=== PATIENT | female | born 1955 | race Caucasian/White ===

== ENCOUNTER 2022-04-05 12:45 | Inpatient (IN) | payer OTHER ==
[~2022-04-05] VITALS: Ht 167.6 cm; Wt 51.0 kg
[2022-04-05] MEDS ORDERED: CEFTRIAXONE 1 G in IV DEXTROSE 5% 50 ML IV ONE (13:00)
[2022-04-05] MEDS ORDERED: IV NORMAL SALINE 1000 ML BAG IV ONE (13:00)
[2022-04-05] MEDS ORDERED: CEFTRIAXONE /D5W 50ML IVPB **ER PYXIS IV ONE (13:02)
[2022-04-05 13:41] LABS: *BILIRUBIN,URIN NEGATIVE (NEGATIVE); *BLOOD, URINE 3+ (NEGATIVE); *CLARITY,URINE CLEAR (CLEAR); *COLOR,URINE YELLOW (YELLOW); *KETONES,URINE NEGATIVE (NEGATIVE); LEUKOCYTE ESTERASE ,URINE 1+ (NEGATIVE); NITRITE, URINE NEGATIVE (NEGATIVE); PH,URINE >=9.0 (5.0-8.0); UGLUCOSE NEGATIVE (NEGATIVE)
[2022-04-05] MEDS ORDERED: ASCO500C18 GT (13:46)
[2022-04-05] MEDS ORDERED: MULT-594 GT (13:46)
[2022-04-05] MEDS ORDERED: RISP2TAB85 GT (13:46)
[2022-04-05] MEDS ORDERED: HYDR-3980 PO (13:46)
[2022-04-05] MEDS ORDERED: RIVA10TA GT (13:46)
[2022-04-05] MEDS ORDERED: DOCU-141 GT (13:46)
[2022-04-05] MEDS ORDERED: ARGI1POW13 GT (13:46)
[2022-04-05] MEDS ORDERED: FERR325T30 GT (13:46)
[2022-04-05 13:48] LABS: CREATININE 0.5 mg/dL (0.6-1.3); POTASSIUM 3.9 mmol/L (3.5-5.1)
[2022-04-05 13:54] LABS: BILIRUBIN,DIRECT 0.1 mg/dL (0.0-0.2); BILIRUBIN,TOTAL 0.2 mg/dL (0.2-1.0)
[2022-04-05] MEDS ORDERED: MORPHINE SULFATE 4 MG/1 ML DISP.SYRIN IV ONE ×2 (14:15→15:00)
[2022-04-05 14:16] LABS: HEMATOCRIT 23.5 % (31.2-41.9); MEAN CORPUSCULAR HEMOGLOBIN 19.7 uug (24.7-32.8); MEAN CORPUSCULAR VOLUME 65.5 fL (75.5-95.3); PLATELET COUNT (AUTO) 724 K/uL (179-408)
[2022-04-05] MEDS ORDERED: MORPHINE SULFATE 4 MG/1 ML DISP.SYRIN ONE ×2 (14:52→15:44)
[2022-04-05 17:22] LABS: BACTERIA,URINE MANY /HPF (NONE SEEN); RBC,URINE 20-50 /HPF (0-3)
[2022-04-05 17:23] LABS: SQUAMOUS EPITHELIAL CELL,UR FEW /HPF (NONE SEEN); TRIPLE PHOSPHATE CRYSTAL,UR FEW /HPF (NONE SEEN); URINE AMORPHOUS PHOSPHATES MANY /HPF
[2022-04-05 19:22] LABS: BAND % (MANUAL) 9 % (0-10); EOSINOPHILS % (MANUAL) 1 % (0-8); LYMPHOCYTES % (MANUAL) 28 % (20-40); METAMYELOCYTES % 2 % (0-1); MONOCYTES % (MANUAL) 4 % (2-10); NEUTROPHILS % (MANUAL) 56 % (42-75)
[2022-04-05 20:00] VITALS: BP 122/44
[2022-04-05 21:45] VITALS: BP 117/63
[2022-04-05] MEDS ORDERED: ZOLPIDEM 5 MG TABLET PO PRN (23:15)
[2022-04-05] MEDS ORDERED: ACETAMINOPHEN 325 MG TABLET PO PRN (23:15)
[2022-04-05] MEDS ORDERED: MAGNESIUM HYDROXIDE 30 ML LIQUID UDC PO PRN (23:15)
[2022-04-05] MEDS ORDERED: ONDANSETRON 4 MG/2 ML VIAL IV PRN (23:15)
[2022-04-05] MEDS ORDERED: REMEDY ESSENTIAL ZINC PASTE 113 GM TP PRN (23:15)
[2022-04-05] MEDS ORDERED: PIPERACILLIN SODIUM/TAZO 3.375 GM VIAL ONE ×2 (23:31)
[2022-04-06] VITALS (8 sets, daily range): BP systolic 102–130; BP diastolic 56–72
[2022-04-06] MEDS ORDERED: VANCOMYCIN IV 1,000 MG in IV DEXTROSE 5% 250 ML IV ONE ×2
[2022-04-06] MEDS: MORPHINE SULFATE 2 MG/1 ML DISP.SYRIN IV PRN ×2 (00:05→08:46)
[2022-04-06] MEDS: IV NS 1000 ML 1,000 ML IV PRN (00:06)
[2022-04-06] MEDS ORDERED: VANCOMYCIN IV 200 ML ONE (00:19)
[2022-04-06] MEDS ORDERED: PIPERACILLIN SODIUM/TAZOBACTAM 3.375 G in IV DEXTROSE 5% 50 ML IV ONE ×2 (00:30→06:30)
[2022-04-06] MEDS ORDERED: MAGNESIUM HYDROXIDE 30 ML LIQUID UDC GT PRN (05:37)
[2022-04-06] MEDS ORDERED: ZOLPIDEM 5 MG TABLET GT PRN (05:38)
[2022-04-06] MEDS ORDERED: ACETAMINOPHEN 650 MG/20.3 ML LIQUID UDC GT PRN (05:45)
[2022-04-06 06:23] LABS: MEAN CORPUSCULAR HEMOGLOBIN 20.1 uug (24.7-32.8); MEAN CORPUSCULAR VOLUME 66.1 fL (75.5-95.3); PLATELET COUNT (AUTO) 657 K/uL (179-408)
[2022-04-06 06:36] LABS: HEMATOCRIT 19.9 % (31.2-41.9)
[2022-04-06 06:41] LABS: THYROID STIMULATING HORMONE 2.632 mIU/mL (0.358-3.740)
[2022-04-06 06:42] LABS: BILIRUBIN,TOTAL 0.3 mg/dL (0.2-1.0); CREATININE 0.6 mg/dL (0.6-1.3); MAGNESIUM 2.3 mg/dL (1.8-2.4); PHOSPHOROUS 4.8 mg/dL (2.5-4.9); POTASSIUM 4.2 mmol/L (3.5-5.1); TOTAL PROTEIN, SERUM 7.7 g/dL (6.4-8.2)
[2022-04-06 07:06] LABS: BAND % (MANUAL) 11 % (0-10); LYMPHOCYTES % (MANUAL) 20 % (20-40); METAMYELOCYTES % 1 % (0-1); MONOCYTES % (MANUAL) 7 % (2-10); NEUTROPHILS % (MANUAL) 61 % (42-75)
[2022-04-06] MEDS: ASCORBIC ACID 500 MG TABLET GT SCH (08:41)
[2022-04-06] MEDS: MULTIVITAMINS,THERAPEUTIC TABLET GT SCH (08:41)
[2022-04-06] MEDS: FERROUS SULFATE 300 MG/5 ML LIQUID UDC GT SCH (08:43)
[2022-04-06] MEDS ORDERED: FERROUS SULFATE 325 MG TABEC PO SCH (09:00)
[2022-04-06] MEDS ORDERED: RIVAROXABAN 10 MG TABLET GT SCH (09:00)
[2022-04-06] MEDS ORDERED: HYDROCODONE/APAP 10-325 MG TABLET PO SCH (09:00)
[2022-04-06] MEDS: PIPERACILLIN SODIUM/TAZOBACTAM 3.375 G in IV DEXTROSE 5% 50 ML IV SCH ×3 (12:47→23:55)
[2022-04-06] MEDS ORDERED: ESCI5TAB PO (13:13)
[2022-04-06] MEDS ORDERED: VANCOMYCIN IV 750 MG in IV DEXTROSE 5% 250 ML IV SCH (15:00)
[2022-04-06] MEDS: MORPHINE SULFATE 4 MG/1 ML DISP.SYRIN IV PRN (15:16)
[2022-04-06] MEDS: RIVAROXABAN 15 MG TABLET GT SCH (18:27)
[2022-04-06] MEDS: VANCOMYCIN IV 750 MG in IV DEXTROSE 5% 250 ML IV SCH (20:29)
[2022-04-06 20:44] LABS: HEMATOCRIT 26.4 % (31.2-41.9)
[2022-04-06] MEDS ORDERED: DOCUSATE SODIUM 100 MG CAPSULE PO SCH (21:00)
[2022-04-06] MEDS: HYDROCODONE/APAP 10-325 MG TABLET GT SCH (21:51)
[2022-04-06] MEDS: risperiDONE 2 MG TABLET GT SCH (21:51)
[2022-04-06] MEDS: DOCUSATE SODIUM 100 MG/10 ML LIQUID UDC GT SCH (21:51)
[2022-04-07 04:14] VITALS: BP 112/65
[2022-04-07] MEDS: PIPERACILLIN SODIUM/TAZOBACTAM 3.375 G in IV DEXTROSE 5% 50 ML IV SCH ×3 (05:54→17:04)
[2022-04-07] MEDS: FERROUS SULFATE 300 MG/5 ML LIQUID UDC GT SCH (08:27)
[2022-04-07] MEDS: ESCITALOPRAM OXALATE 10 MG TABLET GT SCH (08:27)
[2022-04-07] MEDS: HYDROCODONE/APAP 10-325 MG TABLET GT SCH ×2 (08:28→20:03)
[2022-04-07] MEDS: MULTIVITAMINS,THERAPEUTIC TABLET GT SCH (08:28)
[2022-04-07] MEDS: ASCORBIC ACID 500 MG TABLET GT SCH (08:28)
[2022-04-07] MEDS: IV NS 1000 ML 1,000 ML IV PRN (10:55)
[2022-04-07 12:00] VITALS: BP 117/59
[2022-04-07] MEDS: VANCOMYCIN IV 750 MG in IV DEXTROSE 5% 250 ML IV SCH (13:22)
[2022-04-07] MEDS: MORPHINE SULFATE 4 MG/1 ML DISP.SYRIN IV PRN (13:43)
[2022-04-07 16:00] VITALS: BP 124/67
[2022-04-07] MEDS: RIVAROXABAN 15 MG TABLET GT SCH (16:54)
[2022-04-07] MEDS: risperiDONE 2 MG TABLET GT SCH (20:03)
[2022-04-07] MEDS: DOCUSATE SODIUM 100 MG/10 ML LIQUID UDC GT SCH (20:03)
[2022-04-07 20:12] VITALS: BP 147/63
[2022-04-07] MEDS ORDERED: ALBUMIN HUMAN 25% 100 ML ONE (21:24)
[2022-04-07] MEDS: PROTEIN SUPPLEMENT (PROSTAT) 30 ML LIQUID GT SCH (21:36)
[2022-04-07] MEDS: ALBUMIN HUMAN 25% 100 ML IV SCH (22:02)
[2022-04-08] MEDS: PIPERACILLIN SODIUM/TAZOBACTAM 3.375 G in IV DEXTROSE 5% 50 ML IV SCH ×3 (00:30→11:42)
[2022-04-08] MEDS: CHLORHEXIDINE GLUCONATE 15 ML MOUTHWASH MM SCH ×3 (00:38→21:47)
[2022-04-08] MEDS: ALBUMIN HUMAN 25% 100 ML IV SCH ×4 (02:56→21:19)
[2022-04-08 03:59] LABS: CREATININE 0.6 mg/dL (0.6-1.3); POTASSIUM 3.1 mmol/L (3.5-5.1)
[2022-04-08 04:12] VITALS: BP 115/60
[2022-04-08] MEDS: MORPHINE SULFATE 4 MG/1 ML DISP.SYRIN IV PRN ×2 (04:13→08:58)
[2022-04-08] MEDS: VANCOMYCIN IV 750 MG in IV DEXTROSE 5% 250 ML IV SCH (04:29)
[2022-04-08 07:13] LABS: MEAN CORPUSCULAR VOLUME 69.5 fL (75.5-95.3); PLATELET COUNT (AUTO) 633 K/uL (179-408)
[2022-04-08 07:26] LABS: CREATININE 0.6 mg/dL (0.6-1.3); MAGNESIUM 2.1 mg/dL (1.8-2.4); PHOSPHOROUS 2.8 mg/dL (2.5-4.9); POTASSIUM 3.2 mmol/L (3.5-5.1)
[2022-04-08] MEDS: FERROUS SULFATE 300 MG/5 ML LIQUID UDC GT SCH (09:01)
[2022-04-08] MEDS: PROTEIN SUPPLEMENT (PROSTAT) 30 ML LIQUID GT SCH ×2 (09:01→16:42)
[2022-04-08] MEDS: ESCITALOPRAM OXALATE 10 MG TABLET GT SCH (09:01)
[2022-04-08] MEDS: MULTIVITAMINS,THERAPEUTIC TABLET GT SCH (09:01)
[2022-04-08] MEDS: ASCORBIC ACID 500 MG TABLET GT SCH (09:04)
[2022-04-08] MEDS: VITAL AF 1.2 1,000 ML LIQUID GT PRN (09:18)
[2022-04-08] MEDS ORDERED: POTASSIUM CHLORIDE 20 MEQ POWDER PACKET GT ONE (10:00)
[2022-04-08] MEDS: HYDROCODONE/APAP 10-325 MG TABLET GT SCH ×2 (11:37→21:47)
[2022-04-08 12:00] VITALS: BP 133/71
[2022-04-08 12:45] LABS: BAND % (MANUAL) 7 % (0-10); EOSINOPHILS % (MANUAL) 3 % (0-8); LYMPHOCYTES % (MANUAL) 32 % (20-40); METAMYELOCYTES % 1 % (0-1); MONOCYTES % (MANUAL) 2 % (2-10); NEUTROPHILS % (MANUAL) 55 % (42-75)
[2022-04-08] MEDS: IV NS 1000 ML 1,000 ML IV PRN (13:46)
[2022-04-08] MEDS: MEROPENEM 1 G in IV NORMAL SALINE 100 ML IV SCH ×2 (15:55→22:42)
[2022-04-08 16:00] VITALS: BP 146/75
[2022-04-08] MEDS: RIVAROXABAN 15 MG TABLET GT SCH (16:42)
[2022-04-08] MEDS: VANCOMYCIN IV 1,000 MG in IV DEXTROSE 5% 250 ML IV SCH (16:44)
[2022-04-08 20:33] VITALS: BP 144/73
[2022-04-08] MEDS: DOCUSATE SODIUM 100 MG/10 ML LIQUID UDC GT SCH (21:46)
[2022-04-08] MEDS: risperiDONE 2 MG TABLET GT SCH (21:47)
[2022-04-09] MEDS: ALBUMIN HUMAN 25% 100 ML IV SCH
[2022-04-09] MEDS: IV NS 1000 ML 1,000 ML IV PRN (01:43)
[2022-04-09] MEDS ORDERED: ALBUMIN HUMAN 25% 100 ML IV SCH (03:00)
[2022-04-09] MEDS: MORPHINE SULFATE 4 MG/1 ML DISP.SYRIN IV PRN (03:28)
[2022-04-09] MEDS: VANCOMYCIN IV 1,000 MG in IV DEXTROSE 5% 250 ML IV SCH (03:29)
[2022-04-09 04:34] VITALS: BP 144/69
[2022-04-09] MEDS: MEROPENEM 1 G in IV NORMAL SALINE 100 ML IV SCH ×3 (06:18→22:58)
[2022-04-09 06:45] LABS: HEMATOCRIT 22.1 % (31.2-41.9); MEAN CORPUSCULAR HEMOGLOBIN 21.6 uug (24.7-32.8); MEAN CORPUSCULAR VOLUME 68.4 fL (75.5-95.3); PLATELET COUNT (AUTO) 551 K/uL (179-408)
[2022-04-09 06:50] LABS: CREATININE 0.6 mg/dL (0.6-1.3); PHOSPHOROUS 2.4 mg/dL (2.5-4.9); POTASSIUM 3.3 mmol/L (3.5-5.1)
[2022-04-09] MEDS ORDERED: POTASSIUM CHLORIDE 20 MEQ POWDER PACKET GT ONE (09:15)
[2022-04-09] MEDS: ASCORBIC ACID 500 MG TABLET GT SCH (09:38)
[2022-04-09] MEDS: ESCITALOPRAM OXALATE 10 MG TABLET GT SCH (09:38)
[2022-04-09] MEDS: FERROUS SULFATE 300 MG/5 ML LIQUID UDC GT SCH (09:38)
[2022-04-09] MEDS: MULTIVITAMINS,THERAPEUTIC TABLET GT SCH (09:38)
[2022-04-09] MEDS: HYDROCODONE/APAP 10-325 MG TABLET GT SCH ×2 (09:39→20:38)
[2022-04-09] MEDS: CHLORHEXIDINE GLUCONATE 15 ML MOUTHWASH MM SCH ×2 (09:40→21:11)
[2022-04-09] MEDS: PROTEIN SUPPLEMENT (PROSTAT) 30 ML LIQUID GT SCH ×2 (09:41→16:55)
[2022-04-09] MEDS: VITAL AF 1.2 1,000 ML LIQUID GT PRN (10:00)
[2022-04-09 12:00] VITALS: BP 95/39
[2022-04-09] MEDS: IV 1/2NS 1000 ML 1,000 ML IV PRN (12:06)
[2022-04-09 16:00] VITALS: BP 164/78
[2022-04-09] MEDS ORDERED: NEUTRA PHOS PACKET PO ONE (16:00)
[2022-04-09] MEDS: RIVAROXABAN 15 MG TABLET GT SCH (16:54)
[2022-04-09 20:00] VITALS: BP 184/84
[2022-04-09] MEDS: risperiDONE 2 MG TABLET GT SCH (20:38)
[2022-04-09] MEDS: DOCUSATE SODIUM 100 MG/10 ML LIQUID UDC GT SCH (20:38)
[2022-04-09] MEDS: DOXYCYCLINE HYCLATE 100 MG TABLET PO SCH (21:11)
[2022-04-10] MEDS: IV 1/2NS 1000 ML 1,000 ML IV PRN ×2 (02:34→11:16)
[2022-04-10 04:19] VITALS: BP 154/73
[2022-04-10] MEDS: MEROPENEM 1 G in IV NORMAL SALINE 100 ML IV SCH ×3 (06:08→22:39)
[2022-04-10 06:33] LABS: HEMATOCRIT 26.1 % (31.2-41.9); MEAN CORPUSCULAR HEMOGLOBIN 21.6 uug (24.7-32.8); MEAN CORPUSCULAR VOLUME 68.5 fL (75.5-95.3); PLATELET COUNT (AUTO) 613 K/uL (179-408)
[2022-04-10 07:15] VITALS: BP 159/80
[2022-04-10 07:17] LABS: CREATININE 0.5 mg/dL (0.6-1.3); MAGNESIUM 2.1 mg/dL (1.8-2.4); POTASSIUM 3.4 mmol/L (3.5-5.1)
[2022-04-10] MEDS: DOXYCYCLINE HYCLATE 100 MG TABLET PO SCH ×2 (09:20→20:03)
[2022-04-10] MEDS: ASCORBIC ACID 500 MG TABLET GT SCH (09:20)
[2022-04-10] MEDS: MULTIVITAMINS,THERAPEUTIC TABLET GT SCH (09:20)
[2022-04-10] MEDS: HYDROCODONE/APAP 10-325 MG TABLET GT SCH ×2 (09:21→20:03)
[2022-04-10] MEDS: ESCITALOPRAM OXALATE 10 MG TABLET GT SCH (09:21)
[2022-04-10] MEDS: PROTEIN SUPPLEMENT (PROSTAT) 30 ML LIQUID GT SCH ×2 (09:22→17:26)
[2022-04-10] MEDS: CHLORHEXIDINE GLUCONATE 15 ML MOUTHWASH MM SCH ×2 (09:23→20:03)
[2022-04-10] MEDS: FERROUS SULFATE 300 MG/5 ML LIQUID UDC GT SCH (09:23)
[2022-04-10] MEDS ORDERED: POTASSIUM CHLORIDE 20 MEQ POWDER PACKET GT ONE (10:30)
[2022-04-10] MEDS: MORPHINE SULFATE 4 MG/1 ML DISP.SYRIN IV PRN (11:20)
[2022-04-10] MEDS: VITAL AF 1.2 1,000 ML LIQUID GT PRN (11:23)
[2022-04-10 11:57] LABS: IRON, SERUM 29 ug/dL (50-175)
[2022-04-10] MEDS: RIVAROXABAN 15 MG TABLET GT SCH (17:27)
[2022-04-10] MEDS: DOCUSATE SODIUM 100 MG/10 ML LIQUID UDC GT SCH (20:03)
[2022-04-10] MEDS: risperiDONE 2 MG TABLET GT SCH (20:03)
[2022-04-11] MEDS: MEROPENEM 1 G in IV NORMAL SALINE 100 ML IV SCH ×3 (06:04→23:23)
[2022-04-11] MEDS: MORPHINE SULFATE 4 MG/1 ML DISP.SYRIN IV PRN ×2 (06:14→17:59)
[2022-04-11] MEDS: IV 1/2NS 1000 ML 1,000 ML IV PRN (06:14)
[2022-04-11 07:00] VITALS: BP 135/75
[2022-04-11 07:06] LABS: HEMATOCRIT 28.8 % (31.2-41.9); MEAN CORPUSCULAR HEMOGLOBIN 21.5 uug (24.7-32.8); MEAN CORPUSCULAR VOLUME 70.5 fL (75.5-95.3); PLATELET COUNT (AUTO) 502 K/uL (179-408)
[2022-04-11 07:16] LABS: CREATININE 0.6 mg/dL (0.6-1.3); MAGNESIUM 2.3 mg/dL (1.8-2.4); POTASSIUM 4.4 mmol/L (3.5-5.1)
[2022-04-11] MEDS: ASCORBIC ACID 500 MG TABLET GT SCH (09:20)
[2022-04-11] MEDS: FERROUS SULFATE 300 MG/5 ML LIQUID UDC GT SCH (09:20)
[2022-04-11] MEDS: MULTIVITAMINS,THERAPEUTIC TABLET GT SCH (09:20)
[2022-04-11] MEDS: DOXYCYCLINE HYCLATE 100 MG TABLET PO SCH ×2 (09:20→20:40)
[2022-04-11] MEDS: HYDROCODONE/APAP 10-325 MG TABLET GT SCH ×2 (09:21→20:40)
[2022-04-11] MEDS: ESCITALOPRAM OXALATE 10 MG TABLET GT SCH (09:21)
[2022-04-11] MEDS: PROTEIN SUPPLEMENT (PROSTAT) 30 ML LIQUID GT SCH ×2 (09:22→18:00)
[2022-04-11] MEDS: CHLORHEXIDINE GLUCONATE 15 ML MOUTHWASH MM SCH ×2 (09:23→20:41)
[2022-04-11] MEDS: VITAL AF 1.2 1,000 ML LIQUID GT PRN (14:54)
[2022-04-11 16:00] VITALS: BP 124/63
[2022-04-11] MEDS: RIVAROXABAN 15 MG TABLET GT SCH (17:58)
[2022-04-11 20:00] VITALS: BP 137/70
[2022-04-11] MEDS: risperiDONE 2 MG TABLET GT SCH (20:40)
[2022-04-11] MEDS: DOCUSATE SODIUM 100 MG/10 ML LIQUID UDC GT SCH (20:40)
[2022-04-12 04:00] VITALS: BP 161/75
[2022-04-12] MEDS: MORPHINE SULFATE 4 MG/1 ML DISP.SYRIN IV PRN ×3 (04:07→18:12)
[2022-04-12] MEDS: IV 1/2NS 1000 ML 1,000 ML IV PRN (04:17)
[2022-04-12] MEDS: MEROPENEM 1 G in IV NORMAL SALINE 100 ML IV SCH ×2 (06:32→15:50)
[2022-04-12 06:38] LABS: HEMATOCRIT 25.8 % (31.2-41.9); MEAN CORPUSCULAR HEMOGLOBIN 21.6 uug (24.7-32.8); MEAN CORPUSCULAR VOLUME 68.3 fL (75.5-95.3); PLATELET COUNT (AUTO) 574 K/uL (179-408)
[2022-04-12 07:02] LABS: CREATININE 0.5 mg/dL (0.6-1.3); MAGNESIUM 2.2 mg/dL (1.8-2.4); PHOSPHOROUS 4.1 mg/dL (2.5-4.9); POTASSIUM 3.7 mmol/L (3.5-5.1)
[2022-04-12] MEDS: FERROUS SULFATE 300 MG/5 ML LIQUID UDC GT SCH (09:03)
[2022-04-12] MEDS: DOXYCYCLINE HYCLATE 100 MG TABLET PO SCH (09:03)
[2022-04-12] MEDS: ESCITALOPRAM OXALATE 10 MG TABLET GT SCH (09:03)
[2022-04-12] MEDS: MULTIVITAMINS,THERAPEUTIC TABLET GT SCH (09:03)
[2022-04-12] MEDS: ASCORBIC ACID 500 MG TABLET GT SCH (09:04)
[2022-04-12] MEDS: HYDROCODONE/APAP 10-325 MG TABLET GT SCH (09:04)
[2022-04-12] MEDS: PROTEIN SUPPLEMENT (PROSTAT) 30 ML LIQUID GT SCH ×2 (09:05→17:05)
[2022-04-12] MEDS: CHLORHEXIDINE GLUCONATE 15 ML MOUTHWASH MM SCH ×2 (09:10→09:11)
[2022-04-12 09:52] LABS: BILIRUBIN,DIRECT 0.1 mg/dL (0.0-0.2); BILIRUBIN,TOTAL 0.1 mg/dL (0.2-1.0); TOTAL PROTEIN, SERUM 8.4 g/dL (6.4-8.2)
[2022-04-12 12:00] VITALS: BP 143/58
[2022-04-12 15:57] VITALS: BP 121/62
[2022-04-12] MEDS: RIVAROXABAN 15 MG TABLET GT SCH (17:05)
== END 2022-04-12 20:00 | DRG 720 ==
LOC: ER 12:45 → MEDSURG3 21:13
PROVIDERS: ADMIT Nurse Practitioner Acute Care; ATTEND Nurse Practitioner Family
PROC: 30233N1 Transfusion of Nonautologous Red Blood Cells into Peripheral Vein, Percutaneous Approach (ICD-10-PCS; principal; 2022-04-06)
PROC: B547ZZA Ultrasonography of Left Subclavian Vein, Guidance (ICD-10-PCS; 2022-04-09)
PROC: 05H633Z Insertion of Infusion Device into Left Subclavian Vein, Percutaneous Approach (ICD-10-PCS; 2022-04-09)
DX: A41.51 Sepsis due to Escherichia coli [E. coli] (principal); E43 Unspecified severe protein-calorie malnutrition; J96.10 Chronic respiratory failure, unspecified whether with hypoxia or hypercapnia; E87.0 Hyperosmolality and hypernatremia; J18.9 Pneumonia, unspecified organism; R64 Cachexia; D62 Acute posthemorrhagic anemia; E88.09 Other disorders of plasma-protein metabolism, not elsewhere classified; Z93.0 Tracheostomy status; Z99.11 Dependence on respirator [ventilator] status; S21.109A Unspecified open wound of unspecified front wall of thorax without penetration into thoracic cavity, initial encounter; R62.7 Adult failure to thrive; T22.3 Burn of third degree of shoulder and upper limb, except wrist and hand; T21.31XD Burn of third degree of chest wall, subsequent encounter; T21.32XD Burn of third degree of abdominal wall, subsequent encounter; X06.2XXD Exposure to ignition of other clothing and apparel, subsequent encounter; R13.10 Dysphagia, unspecified; G89.29 Other chronic pain; Z79.01 Long term (current) use of anticoagulants; Z59.00 Homelessness unspecified; Z93.1 Gastrostomy status; N39.0 Urinary tract infection, site not specified; F31.9 Bipolar disorder, unspecified; F20.9 Schizophrenia, unspecified; Z68.1 Body mass index [BMI] 19.9 or less, adult; Y93.9 Activity, unspecified; Y92.89 Other specified places as the place of occurrence of the external cause; T20.37XD Burn of third degree of neck, subsequent encounter; T21.3 Burn of third degree of trunk; T20.30XD Burn of third degree of head, face, and neck, unspecified site, subsequent encounter; B96.20 Unspecified Escherichia coli [E. coli] as the cause of diseases classified elsewhere; Z16.12 Extended spectrum beta lactamase (ESBL) resistance; S31.109A Unspecified open wound of abdominal wall, unspecified quadrant without penetration into peritoneal cavity, initial encounter
CPT/HCPCS: 36415; 70030-TC; 71045; 83550; 83605; 83735; 83935; 84100; 84300; 84443; 85018; 85025; 85730; 86850; 86900; 86901; 86920; 87040; 87070; 87077; 87086; A4663; A6209; A6213; G0378; J0696; J2185; J2270; J2543; J3370; J7040; J7050; P9016; P9047

== ENCOUNTER 2022-05-02 23:36 | Emergency (ER) | payer OTHER ==
[~2022-05-02] VITALS: Ht 162.6 cm; Wt 50.8 kg
[~2022-05-02 23:36] MED LIST: ARGI1POW13 GT; ASCO500C18 GT; DOCU-141 GT; ESCI5TAB PO; FERR325T30 GT; HYDR-3980 PO; MULT-594 GT; RISP2TAB85 GT; RIVA10TA GT
--- NOTE | 2022-05-03 00:02 | NUR ---
Dr Leslie at bedside, MSE in progeress.
[2022-05-03] MEDS ORDERED: ACET160T6 GT (00:19)
[2022-05-03] MEDS ORDERED: ZINC50TA39 GT (00:19)
[2022-05-03] MEDS ORDERED: AMIN30LI2 GT (00:19)
[2022-05-03] MEDS ORDERED: HYDR-3980 GT (00:19)
[2022-05-03] MEDS ORDERED: LORA-258 GT (00:19)
[2022-05-03 00:28] LABS: HEMATOCRIT 25.6 % (31.2-41.9); MEAN CORPUSCULAR HEMOGLOBIN 21.9 uug (24.7-32.8); PLATELET COUNT (AUTO) 375 K/uL (179-408)
[2022-05-03 02:27] LABS: ALANINE AMINOTRANSFERASE 24 U/L (14-59); ALKALINE PHOSPHATASE 87 U/L (50-136); ASPARTATE AMINOTRANSFERASE 22 U/L (15-37); BILIRUBIN,DIRECT 0.1 mg/dL (0.0-0.2); BILIRUBIN,TOTAL 0.1 mg/dL (0.2-1.0); CARBON DIOXIDE 31 mmol/L (21-32); CHLORIDE 106 mmol/L (98-107); CREATININE 0.6 mg/dL (0.6-1.3); GLUCOSE 94 mg/dL (74-106); POTASSIUM 4.2 mmol/L (3.5-5.1); TOTAL PROTEIN, SERUM 8.2 g/dL (6.4-8.2); UREA NITROGEN, BLOOD 17 mg/dL (7-18)
--- NOTE | 2022-05-03 04:06 | NUR ---
Transport ETA 20-30 mins
--- NOTE | 2022-05-03 04:06 | NUR ---
Called [facility] ambulance for transport back to [facility].
--- NOTE | 2022-05-03 04:53 | NUR ---
[facility] [id number] here for transport back to [facility]
[2022-05-03 04:55] VITALS: BP 95/55
== END 2022-05-03 04:56 ==
LOC: ER 23:36
DX: D64.9 Anemia, unspecified (principal); T20.3 Burn of third degree of head, face, and neck; X08.8XXD Exposure to other specified smoke, fire and flames, subsequent encounter; R94.31 Abnormal electrocardiogram [ECG] [EKG]; F20.9 Schizophrenia, unspecified; J96.90 Respiratory failure, unspecified, unspecified whether with hypoxia or hypercapnia; Z93.0 Tracheostomy status
CPT/HCPCS: 36415; 71045; 83605; 84484; 85025; 85730; 86850; 86900; 86901; 87040; 93005